=== PATIENT | male | born 1955 | race Caucasian/White ===

== ENCOUNTER → 2024-04-17 14:03 | Outpatient (REF) | payer MEDICARE, SELFPAY | LOC: HWRAD 14:03 | PROVIDERS: ATTENDING PHYSICIAN Family Medicine | DX: E78.5 Hyperlipidemia, unspecified (principal); Z13.6 Encounter for screening for cardiovascular disorders | CPT/HCPCS: 75571 ==

== ENCOUNTER → 2024-05-07 08:51 | Outpatient (REF) | payer MEDICARE, SELFPAY | LOC: RCS 08:51 | PROVIDERS: ATTENDING PHYSICIAN Internal Medicine Cardiovascular Disease; FAMILY PHYSICIAN Family Medicine | DX: R07.89 Other chest pain (principal) | CPT/HCPCS: 93017; 93350 ==

== ENCOUNTER → 2024-05-09 08:59 | Outpatient (REF) | payer MEDICARE, SELFPAY | LOC: HWRCS 08:59 | PROVIDERS: ATTENDING PHYSICIAN Internal Medicine Cardiovascular Disease; FAMILY PHYSICIAN Family Medicine | DX: R06.09 Other forms of dyspnea (principal) | CPT/HCPCS: 93306 ==

== ENCOUNTER → 2024-06-19 11:36 | Outpatient (REF) | payer MEDICARE, SELFPAY | LOC: DHSLP 11:36 | PROVIDERS: ATTENDING PHYSICIAN Internal Medicine Critical Care Medicine; FAMILY PHYSICIAN Family Medicine | DX: G47.30 Sleep apnea, unspecified (principal); G47.19 Other hypersomnia; R06.83 Snoring; R91.1 Solitary pulmonary nodule; K21.9 Gastro-esophageal reflux disease without esophagitis; J84.9 Interstitial pulmonary disease, unspecified; R06.02 Shortness of breath | CPT/HCPCS: 95806 ==

== ENCOUNTER → 2024-06-24 09:28 | Outpatient (REF) | payer MEDICARE, SELFPAY | LOC: HWRAD 09:28 | PROVIDERS: ATTENDING PHYSICIAN Specialist | DX: N20.0 Calculus of kidney (principal); N39.0 Urinary tract infection, site not specified | CPT/HCPCS: 76770 ==

== ENCOUNTER → 2024-06-30 10:44 | Outpatient (REF) | payer MEDICARE, SELFPAY | LOC: CLAB 10:44 | PROVIDERS: ATTENDING PHYSICIAN Specialist | DX: C67.9 Malignant neoplasm of bladder, unspecified (principal) | CPT/HCPCS: 88112 ==

== ENCOUNTER 2024-07-03 06:44 | Day surgery (SDC) | payer MEDICARE, SELFPAY ==
[2024-07-03] VITALS (14 sets, daily range): BP systolic 116–143; BP diastolic 80–86; BMI 28.5
[2024-07-03] MEDS: NORMOSOL-R/PLASMALYTE-A 1000 IV (07:59)
[2024-07-03] MEDS: CYSVIEW KIT 100 MG INTRAVES (08:03)
[2024-07-03] MEDS: SYRINGE NON-PUMP 50 MG IRRIG (10:55)
[2024-07-03] MEDS: SYRINGE NON-PUMP 50 ML IRRIG (10:55)
[2024-07-03] MEDS: DETROL LA 4 MG PO (11:01)
[2024-07-03] MEDS: TYLENOL 1000 MG PO (12:37)
== END 2024-07-03 14:18 | disposition home or self-care (01) ==
LOC: SDS 06:44
PROVIDERS: ATTENDING PHYSICIAN Specialist
DX: C67.9 Malignant neoplasm of bladder, unspecified (principal)
CPT/HCPCS: 52235; 52204; C9738; 88305; 88307; 87086; 88341; 88342; A9589; J9201

== ENCOUNTER 2024-07-07 23:42 | Emergency (ER) | payer MEDICARE, SELFPAY ==
[2024-07-07 23:42] VITALS: BP 110/86
[2024-07-08 01:13] VITALS: BMI 29.1
[2024-07-08 01:17] VITALS: BP 138/82
--- NOTE | 2024-07-08 01:58 | ED.GENMED ---
History of Present Illness
General
Chief Complaint: Male Genito-Urinary Symptoms
Source: patient
Exam Limitations: none
Time Seen by Provider: 07/08/24 01:22
History of Present Illness
History of Present Illness:
68-year-old male presents with no urine output since removing his catheter tonight. He was having leaking around his Arcos catheter following a TURP procedure performed on 1218. He was instructed by the urologist on the phone to cut his catheter
and let it drain and pull it out. He dorsalis catheter came out without any difficulty or pain. He is also spotted to a blood. He does not have the urge to urinate however he has not urinated since removing the catheter 3 hours prior to my exam.
Past History
Past History
ED Past Medical History: GERD, Hypothyroidism and Other (Kidney stones, lumbar DJD)
ED Past Surgical History: Appendectomy, Cholecystectomy, Orthopedic and Urological (Kidney stone removal)
Social History
Tobacco: Non-smoker
Alcohol: Occasional
Personal:
Living: with family
Employment: Employed
Family History
Family History: Other (Noncontributory)
Phy Exam
Physical Exam
Physical Exam:
General: Well-appearing male no acute respiratory distress
HEENT: Normocephalic atraumatic
Heart: Regular rate and rhythm no murmurs lungs: Clear no wheeze abdomen soft nontender nondistended
Extremities: No cyanosis
Course
Vital Signs
Initial and Last Documented VS:
Initial Vital Signs
Temp Pulse BP Pulse Ox
97.5 F 94 110/86 95
07/07/24 23:42 07/07/24 23:42 07/07/24 23:42 07/07/24 23:42
Last Documented Vital Signs
Temp Pulse BP Pulse Ox
97.5 F 94 138/82 98
07/07/24 23:42 07/07/24 23:42 07/08/24 01:17 07/08/24 01:18
MDM/Problems Addressed
Differential Diagnosis Includes:
Patient here for inability to urinate since removing his own catheter 3 hours prior. He does not have the urge to to go at this time. Bedside bladder scan demonstrated 174 mL of urine in the bladder.
Had discussion with patient. He may not have enough urine in the bladder to give him the urge to urinate. Will have him drink water and wait for a spontaneous voiding
*Critical Care Note
Total Time (30-74mins, 75-104mins- exclusive of procedures): Not Applicable
Update Note
Update Note:
Patient spontaneously voided. He states he had a good stream. No discomfort. He did not pass any clots. No indication for catheter at this time. Stable for discharge
ED Attending Note
-
Portions of this chart may have been created with voice recognition software.� Occasional wrong word or��sound alike� substitutions may have occurred due to the inherent limitations of voice recognition software.
Discharge Plan
Departure
Patient Disposition: Home (Routine Discharge)
Date of Disposition: 07/08/24
Time of Disposition: 02:21
Patient with high blood pressure during this ER visit?: No
Discharge Problem:
void trial
Instructions: Urinary Retention (DC)
Prescriptions:
No Action
levothyroxine 75 MCG tablet
75 mcg PO DAILY
pantoprazole 40 MG tablet,delayed release (DR/EC)
40 mg PO DAILY
ascorbic acid (vitamin C) [Vitamin C] 1,000 MG tablet
2 cap PO DAILY
ketoconazole 1 APPLIC cream
1 applic topical BID
Patient Comments:
03/03/2021: APPLY TO FEET BID
multivitamin with folic acid [Tab-A-Collette] 1 TABLET tablet
1 tab PO DAILY
tamsulosin 0.4 mg Capsule
0.4 mg PO DAILY
finasteride 5 mg Tablet
5 mg PO DAILY
rosuvastatin 20 mg Tablet
20 mg PO QPM
cyclosporine [Restasis] 0.05 % Dropperette
1 drp BOTH EYES BID
Vitamin D3
5,000 mg PO DAILY
Referrals:
Liberty Acuna PA-C [Family Provider] -
Activity Restrictions/Additional Instructions:
Please return here if needed. Follow-up with your urologist otherwise
Interventions
Interventions:
*General Assessment Last Done: 07/08/24 01:13
*Neglect/Abuse Screening Last Done: 07/07/24 23:46
ED- Fall Risk Assessment Last Done: 07/08/24 01:13
*ED COVID-19 Vaccine History Last Done: 07/08/24 01:13
ED-Male Genitourinary Assessment Last Done: 07/08/24 01:13
Discharge Date and Time
Print Language: AZERI
[2024-07-08 02:00] VITALS: BP 138/85
== END 2024-07-08 02:42 | disposition home or self-care (01) ==
LOC: EMR 23:42
PROVIDERS: EMERGENCY PHYSICIAN Student in an Organized Health Care Education/Training Program; FAMILY PHYSICIAN Physician Assistant Medical
DX: R33.9 Retention of urine, unspecified (principal); K21.9 Gastro-esophageal reflux disease without esophagitis; E03.9 Hypothyroidism, unspecified; Z90.49 Acquired absence of other specified parts of digestive tract
CPT/HCPCS: 99282

== ENCOUNTER 2024-07-13 19:10 | Emergency (ER) | payer MEDICARE, SELFPAY ==
[2024-07-13] VITALS (7 sets, daily range): BP systolic 124–134; BP diastolic 80–102
[2024-07-13 19:39] LABS: Urine Albumin Trace (Neg - Trace); Urine Bilirubin Negative (Negative); Urine Character Clear (Clear); Urine Color Yellow; Urine Glucose Negative (Negative); Urine Ketone Negative (Negative); Urine Leukocyte 1+ (Negative); Urine Nitrite Negative (Negative); Urine Occult Blood 3+ (Negative); Urine Specific Gravity 1.025 (<1.030); Urine Urobilinogen Negative (Neg - 1+)
[2024-07-13 19:49] LABS: Urine Calcium Oxalate Crystals Present; Urine Squamous Cell None seen /LPF (Few)
[2024-07-13 19:50] LABS: Urine Red Blood Cell 26-30 /HPF (0-2)
[2024-07-13 21:56] LABS: % Basophils 0.6 % (0-2); % Eosinophils 3.7 % (0-6); % Immature Granulocytes 0.2 % (0-0.5); % Lymphocytes 33.3 % (20.5-51.1); % Monocytes 10.4 % (1.7-9.3); % Neutrophils 51.8 % (42.2-75.2); Absolute Basophils 0.1 10^3/uL (0-0.2); Absolute Eosinophils 0.3 10^3/uL (0-0.7); Absolute Monocytes 0.9 10^3/uL (0.1-0.6); Absolute Neutrophils 4.7 10^3/uL (1.4-6.5); Hematocrit 42.5 % (39.0-52.0); Hemoglobin 15.3 g/dL (13.0-18.0); Mean Corpuscular Hgb 33.3 pg (27.0-31.0); Mean Corpuscular Volume 92.6 fL (80.0-94.0); Mean Platelet Volume 10.7 fL (7.4-10.4); Nucleated Red Blood Cells % 0 % (-); Platelet Count 194 10^3/uL (130-400); Red Blood Cell Count 4.59 10^6/uL (4.70-6.10); Red Cell Dist. Width 11.7 % (11.5-14.5)
[2024-07-13 22:08] LABS: ALT (SGPT) 22 U/L (0-50); AST (SGOT) 23 U/L (17-59); Albumin 4.2 g/dl (3.5-5.0); Alkaline Phosphatase 57 U/L (38-126); Blood Urea Nitrogen 19 mg/dl (9-20); Carbon Dioxide 26 mmol/L (22-30); Chloride 99 mmol/L (98-107); Glucose 108 mg/dl (70-99); Potassium 4.1 mmol/L (3.5-5.1); Sodium 134 mmol/L (135-145); Total Bilirubin 0.4 mg/dl (0.2-1.3); Total Protein 6.8 g/dl (6.3-8.2); eGFR > 60.00
--- NOTE | 2024-07-13 23:16 | ED.GENMED ---
History of Present Illness
General
Chief Complaint: Back Pain
Source: patient
Exam Limitations: none
Time Seen by Provider: 07/13/24 21:08
Nursing documentation reviewed up to this point in time: agreed with
History of Present Illness
History of Present Illness:
Patient to ED wt complaint of right flank pain. States he had surgery for bladder cancer 2 weeks ago. His liu catheter was removed on 07/07. He completed a course of cipro. Feeling well until today when he noted right flank pain. Brought to
ED by spouse for eval. Denies fever/chills, n/v/d.
Past History
Past History
ED Past Medical History: Cancer (Bladder), GERD, Hypothyroidism and Other (Kidney stones, lumbar DJD)
ED Past Surgical History: Appendectomy, Cholecystectomy, Orthopedic and Urological (Kidney stone removal)
Social History
Tobacco: Non-smoker
Alcohol: Occasional
Personal:
Living: with family
Employment: Employed
Family History
Family History: Other (Noncontributory)
Review of Systems
Review of Systems
All Other Systems: ROS reviewed and negative except as documented in HPI and ROS
Constitutional: Reports no symptoms
EENT: Reports no symptoms
Respiratory: Reports no symptoms
Cardiac: Reports no symptoms
ABD/GI: Reports no symptoms
: Reports flank pain
Musculoskeletal: Reports no symptoms
Skin: Reports no symptoms
Neurological: Reports no symptoms
Psychiatric: Reports no symptoms
Phy Exam
General Physical Exam
General Presentation: well appearing and no apparent distress
General age: appears stated age
General Skin: warm and dry
General Habitus: normal
General Mental: alert
Gastrointestinal Exam
Gastrointestinal Exam: normal bowel sounds, non tender, soft, no organomegaly, non distended and no cva tenderness
Musculoskeletal Exam
Musculoskeletal Exam: full ROM and neuro vasc intact
Skin Exam
Skin Exam: normal color, warm/dry and no rash
Psychiatric Exam
Psychiatric Exam: normal mood/affect
Course
Orders/Labs/Results
Orders:
Orders
07/13/24 19:18
Urinalysis Reflex To Culture Urgent
Date Specimen was Collected: 07/13/24
Time Specimen was Collected: 19:16
Urine Microscopic Reflex Cult Urgent
Urine Culture Urgent
ALLISON Source: U
Specimen Description:
Date Specimen was Collected: 07/13/24
Time Specimen was Collected: 19:16
07/13/24 21:51
Complete Blood Count/With Diff Urgent
Comprehensive Metabolic Panel Urgent
07/13/24 22:29
CT Abd/pel Without Iv Or Oral Urgent
Comment:
Reason For Exam: Right flank pain
Abnormal Lab Results
07/13/24 07/13/24
19:18 21:51
RBC 4.59 L 10^6/uL
(4.70-6.10)
MCH 33.3 H pg
(27.0-31.0)
MPV 10.7 H fL
(7.4-10.4)
Absolute Monos (auto) 0.9 H 10^3/uL
(0.1-0.6)
Monocytes % 10.4 H %
(1.7-9.3)
Sodium 134 L mmol/L
(135-145)
Glucose 108 H mg/dl
(70-99)
Ur Occult Blood Reflex 3+ A
(Negative)
Leukocyte Esterase Rfl 1+ A
(Negative)
Urine RBC 26-30 A /HPF
(0-2)
07/13/24 21:51
07/13/24 21:51
Vital Signs
Initial and Last Documented VS:
Initial Vital Signs
Temp Pulse Resp BP Pulse Ox
98.4 F 89 16 124/102 99
07/13/24 19:13 07/13/24 19:13 07/13/24 19:13 07/13/24 19:13 07/13/24 19:13
Last Documented Vital Signs
Temp Pulse Resp BP Pulse Ox
98.4 F 71 12 125/83 96
07/13/24 19:13 07/13/24 22:30 07/13/24 22:30 07/13/24 22:00 07/13/24 22:30
*Radiology
Radiology exam reviewed: radiology read reviewed
*Pulse Oximetry
Patient hypoxic: no
*Critical Care Note
Total Time (30-74mins, 75-104mins- exclusive of procedures): Not Applicable
Update Note
Update Note:
Patient to ED with complaint of right flank pain. S/p bladder cancer surgery 3 weeks ago. Denies fever/chills. No difficulty with urination, no burning with urination. Labs CT reviewed. No evidence of hydronephrosis, no obstrutions, no stones.
Will discharge home and he will follow up [facility] Dr. Larios. Dr. Pierce notified of patient presentation and CT results.
ED Attending Note
-
Portions of this chart may have been created with voice recognition software.� Occasional wrong word or��sound alike� substitutions may have occurred due to the inherent limitations of voice recognition software.
Discharge Plan
Departure
Patient Disposition: Home (Routine Discharge)
Date of Disposition: 07/13/24
Time of Disposition: 23:14
Patient with high blood pressure during this ER visit?: No
Condition: Good
Covid-19: Not Applicable
Discharge Problem:
Acute flank pain
Instructions: Low Back Pain (DC), Flank Pain ED
Prescriptions:
No Action
levothyroxine 75 MCG tablet
75 mcg PO DAILY
pantoprazole 40 MG tablet,delayed release (DR/EC)
40 mg PO DAILY
ascorbic acid (vitamin C) [Vitamin C] 1,000 MG tablet
2 cap PO DAILY
ketoconazole 1 APPLIC cream
1 applic topical BID
Patient Comments:
03/03/2021: APPLY TO FEET BID
multivitamin with folic acid [Tab-A-Collette] 1 TABLET tablet
1 tab PO DAILY
tamsulosin 0.4 mg Capsule
0.4 mg PO DAILY
finasteride 5 mg Tablet
5 mg PO DAILY
rosuvastatin 20 mg Tablet
20 mg PO QPM
cyclosporine [Restasis] 0.05 % Dropperette
1 drp BOTH EYES BID
Vitamin D3
5,000 mg PO DAILY
Referrals:
Fernando Larios MD [Active] - Tomorrow
Liberty Acuna PA-C [Family Provider] -
Activity Restrictions/Additional Instructions:
Return to the emergency department immediately for any changes in/worsening of your symptoms.
Interventions
Interventions:
*Risk Screen - Suicide Last Done: 07/13/24 19:13
*Neglect/Abuse Screening Last Done: 07/13/24 19:13
ED-Male Genitourinary Assessment Last Done: 07/13/24 22:51
ED-Musculoskeletal Assessment Last Done: 07/13/24 22:51
Discharge Date and Time
Print Language: LITHUANIAN
== END 2024-07-13 23:23 | disposition home or self-care (01) ==
LOC: EMR 19:10
PROVIDERS: Emergency Medicine; Nurse Practitioner; EMERGENCY PHYSICIAN Emergency Medicine; FAMILY PHYSICIAN Physician Assistant Medical
DX: R10.9 Unspecified abdominal pain (principal)
CPT/HCPCS: 99284; 74176; 80053; 81003; 81015; 85025; 87086

== ENCOUNTER → 2025-04-03 07:44 | Outpatient (REF) | payer MEDICARE, SELFPAY | LOC: HWRAD 07:44 | PROVIDERS: ATTENDING PHYSICIAN Internal Medicine Critical Care Medicine; FAMILY PHYSICIAN Physician Assistant Medical | DX: R91.1 Solitary pulmonary nodule (principal) | CPT/HCPCS: 71250 ==